=== PATIENT | female | born 1990 ===

== ENCOUNTER → 2023-02-28 13:05 | Outpatient (BNVA) | payer MEDICAID, SELFPAY | PROVIDERS: PCP Nurse Practitioner Family; Referring Provider Nurse Practitioner Family; Visit Provider Internal Medicine | DX: E07.9 Disorder of thyroid, unspecified (principal); E56.9 Vitamin deficiency, unspecified; M25.50 Pain in unspecified joint; E53.8 Deficiency of other specified B group vitamins | CPT/HCPCS: 36415; 82306; 82607; 82670; 84439; 84443; 99204 ==